=== PATIENT | female | born 1985 | race Caucasian/White ===

== ENCOUNTER 2016-10-10 15:53 | Emergency (ER) | payer SELFPAY ==
[~2016-10-10] VITALS: Ht 170.2 cm; Wt 77.0 kg
[2016-10-10 16:08] VITALS: Ht 170.2 cm; Wt 77.0 kg
[2016-10-10] MEDS ORDERED: LORA1TAB PO (17:12)
--- NOTE | 2016-10-10 17:20 | ERD ---
ER Documentation Chief Complaint Date/Time DATE: 10/10/16 TIME: 17:18 Chief Complaint HEROIN USE LAST NIGHT FEELS SHAKEY HPI 30-year-old female who presents with family member after feeling shaky and tremulous after using heroin yesterday evening. She denies any headache chest pain or shortness of breath. The family and patient are asking for detox and a prescription for methadone. The patient has never been on methadone before. She denies any diarrhea or piloerection. ROS All systems reviewed and are negative except as per history of present illness. Medications Home Meds Active Scripts Lorazepam* (Lorazepam*) 1 Mg Tablet, 1 MG PO Q8 Y for CONTROL WITHDRAWAL SYMPTOMS, #5 TAB Prov:ARTURO MYLES MD 10/10/16 Allergies Allergies: Coded Allergies: No Known Allergy (Unverified , 10/10/16) FmHx Family History: No diabetes Physical Exam Vitals Vital Signs Date Time Temp Pulse Resp B/P Pulse Ox O2 Delivery O2 Flow Rate FiO2 10/10/16 16:08 99.0 99 19 132/82 100 Physical Exam General: Well developed, well nourished, no acute distress Head: Normocephalic, atraumatic. Eyes: Pupils equally reactive, EOM intact ENT: Moist mucous membranes Neck: Supple, no lymphadenopathy Respiratory: Lungs clear bilaterally, no distress Cardiovascular: RRR, no murmurs, rubs, or gallops Abdominal: Soft, non-tender, non-distended, no peritoneal signs : Deferred MSK: No edema, no unilateral swelling, 5/5 strength Neurologic: Alert and oriented, moving all extremities, normal speech, no focal weakness, no cerebellar signs Skin: No rash Psych: Normal mood Results 24 hrs Current Medications Medications (Trade) Dose Ordered Sig/Victorina Route PRN Reason Start Time Stop Time Status Last Admin Dose Admin Lorazepam (Ativan) 1 mg ONCE ONCE PO 10/10/16 17:30 10/10/16 17:31 Clonidine (Catapres) 0.1 mg ONCE ONCE PO 10/10/16 17:30 10/10/16 17:31 Procedures/MDM MEDICAL DECISION MAKING: The patient has very mild symptoms of heroin withdrawal. It appears the patient is here mostly to receive information for detox center. The patient does not require IV medications or inpatient hospitalization she appears well- hydrated with normal vital signs. ER COURSE: The patient was given Ativan, clonidine. Patient will be given a small prescription for Ativan at home a total of 5 tablets. I will not prescribe methadone as the patient has not been given methadone in the past. Referral information and substance abuse information provided. 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 The patient is otherwise extremely well-appearing here in the emergency department. She is safe for outpatient management. I kept the patient and/or family informed of laboratory and diagnostic imaging results throughout the emergency room course. DISPOSITION PLAN: We discussed follow up with the patient's primary care doctor within 24 to 48 hours as needed. We also discussed return to the emergency room for worsening symptoms or worsening condition. Outpatient referral: Substance abuse programs Discharge Medications: Ativan Departure Diagnosis: Primary Impression: Heroin withdrawal Condition: Stable Patient Instructions: Understanding Heroin Abuse and Addiction Referrals: [facility] YOU HAVE RECEIVED A MEDICAL SCREENING EXAM AND THE RESULTS INDICATE THAT YOU DO NOT HAVE A CONDITION THAT REQUIRES URGENT TREATMENT IN THE EMERGENCY DEPARTMENT. FURTHER EVALUATION AND TREATMENT OF YOUR CONDITION CAN WAIT UNTIL YOU ARE SEEN IN YOUR DOCTORS OFFICE WITHIN THE NEXT 1-2 DAYS. IT IS YOUR RESPONSIBILITY TO MAKE AN APPOINTMENT FOR [facility]. IF YOU HAVE A PRIMARY DOCTOR --you should call your primary doctor and schedule an appointment IF YOU DO NOT HAVE A PRIMARY DOCTOR YOU CAN CALL OUR PHYSICIAN REFERRAL HOTLINE AT IF YOU CAN NOT AFFORD TO SEE A PHYSICIAN YOU CAN CHOSE FROM THE FOLLOWING [facility] CL[facility] [address] [facility]. [facility] [address] [facility] [address] [facility] [address] [facility] [facility] [address] [facility]. [employer] [facility] [address] [facility]. [facility] YOU HAVE RECEIVED A MEDICAL SCREENING EXAM AND THE RESULTS INDICATE THAT YOU DO NOT HAVE A CONDITION THAT REQUIRES URGENT TREATMENT IN THE EMERGENCY DEPARTMENT. FURTHER EVALUATION AND TREATMENT OF YOUR CONDITION CAN WAIT UNTIL YOU ARE SEEN IN YOUR DOCTORS OFFICE WITHIN THE NEXT 1-2 DAYS. IT IS YOUR RESPONSIBILITY TO MAKE AN APPOINTMENT FOR [facility]. IF YOU HAVE A PRIMARY DOCTOR --you should call your primary doctor and schedule and appointment IF YOU DO NOT HAVE A PRIMARY DOCTOR YOU CAN CALL OUR PHYSICIAN REFERRAL HOTLINE AT . IF YOU CAN NOT AFFORD TO SEE A PHYSICIAN YOU CAN CHOSE FROM THE FOLLOWING [facility] INSTITUTIONS: [facility] [address] [place] [address] [facility] [address] [place] [address] [facility] [address] [place] [address] Additional Instructions: Call your primary care doctor TOMORROW for an appointment during the next 1 WEEK.Tell the squirrel man that you were referred from this facility.See the doctor sooner or return here if your condition worsens before your appointment time. ARTURO MYLES MD Oct 10, 2016 17:20
[2016-10-10 17:26] VITALS: BP 146/72; PULSE 97; RESP 18; TEMP 99
[2016-10-10] MEDS ORDERED: LORAZEPAM 1 MG TAB PO ONE (17:30)
[2016-10-10] MEDS ORDERED: ONDA4TAB14 PO (17:57)
== END 2016-10-10 16:30 | disposition home or self-care (01) ==
LOC: E/R 15:53
DX: F11.23 Opioid dependence with withdrawal (principal)
CPT/HCPCS: 99282